=== PATIENT | female | born 1970 | race Caucasian/White ===

== ENCOUNTER 2017-10-10 21:08 | Emergency (ER) | payer OTHER ==
[2017-10-10 21:29] VITALS: RESP 18; TEMP 97.8; O2SAT 100
--- NOTE | 2017-10-10 22:13 | ED PDOC ---
HPI: Hypertension/Hypotension Time Seen by Provider: 10/10/17 21:48 Chief Complaint (Nursing): Chest Pain Chief Complaint (Provider): hypertension, chest pain History Per: Patient History/Exam Limitations: no limitations Onset/Duration Of Symptoms: Days (2 weeks), Waxing/Waning Current Symptoms Are (Timing): Still Present Associated Symptoms: Chest Pain Additional Complaint(s): 47 y/o female presents for evaluation of elevated blood pressure x 2 weeks. Patient states she has been feeling "off" x 2 weeks, has been checking blood pressures at home and getting numbers in 140's/90's. Patient also reports intermittent chest pressure, which has become more persistent in the last 2 days. Patient states tonight she was at a work event, had two alcoholic beverages, then began to feel tingling in right arm, which prompted ED visit. Patient admits to drinking alcohol more frequently than she usually does since summer started. Patient unsure if her symptoms related to anxiety due to her elevated BP and family history of elevated BP. Denies fever, headache, dizziness , extremity weakness, shortness of breath, palpitations, abdominal pain, leg pain/swelling, OCP use, tobacco use. Past Medical History Reviewed: Historical Data, Nursing Documentation, Vital Signs Vital Signs: Last Vital Signs Temp 97.8 F 10/10/17 21:26 Pulse 64 10/10/17 21:26 Resp 18 10/10/17 21:26 BP 145/105 H 10/10/17 22:04 Pulse Ox 100 10/10/17 21:26 - Medical History PMH: No Chronic Diseases - Surgical History Surgical History: No Surg Hx - Family History Family History: States: CAD, Hypertension - Living Arrangements Living Arrangements: Alone - Social History Current smoker - smoking cessation education provided: No Alcohol: Other (3-4 times per week) Drugs: Denies - Allergies Allergies/Adverse Reactions: Allergies Allergy/AdvReac Type Severity Reaction Status Date / Time No Known Allergies Allergy Verified 10/10/17 21:26 Review of Systems ROS Statement: Except As Marked, All Systems Reviewed And Found Negative Cardiovascular: Positive for: Chest Pain Physical Exam - Reviewed Nursing Documentation Reviewed: Yes Vital Signs Reviewed: Yes - Physical Exam Appears: Positive for: Well, Non-toxic, No Acute Distress Head Exam: Positive for: ATRAUMATIC, NORMAL INSPECTION, NORMOCEPHALIC Skin: Positive for: Normal Color Eye Exam: Positive for: Normal appearance ENT: Positive for: Normal ENT Inspection Cardiovascular/Chest: Positive for: Regular Rate, Rhythm Respiratory: Positive for: Normal Breath Sounds Gastrointestinal/Abdominal: Positive for: Normal Exam Back: Positive for: Normal Inspection Extremity: Positive for: Normal ROM Neurologic/Psych: Positive for: Alert, Oriented (x3). Negative for: Motor/ Sensory Deficits - Laboratory Results Result Diagrams: 10/10/17 22:21 10/10/17 22:21 - ECG ECG: Positive for: Viewed By Me (reviewed by ED attending) ECG Rhythm: Positive for: Sinus Rhythm O2 Sat by Pulse Oximetry: 100 Pulse Ox Interpretation: Normal - Radiology X-Ray: Viewed By Me X-Ray Interpretation: No Acute Disease - Progress ED Course And Treament: labs, ekg, chest xray 2hour repeat trop neg Patient educated on findings, discharged with instructions to follow up PMD 2-3 days Offered rx for Hctz but patient states she does not wish to go on BP medication at this time; states she will avoid alcohol and follow up with her primary doctor Return precautions given Disposition - Clinical Impression Clinical Impression: Hypertension, Chest pain - Patient ED Disposition Is Patient to be Admitted: No Counseled Patient/Family Regarding: Studies Performed, Diagnosis, Need For Followup - Disposition Disposition: Routine/Home Disposition Time: 01:33 Condition: STABLE Instructions: High Blood Pressure in Adults, Chest Pain, Controlling Your Blood Pressure Through Lifestyle Forms: [employer] (Green[place]ic)
[2017-10-10 22:38] LABS: BASO % 0.7 % (0.0-2.0); EOS # 0.1 K/uL (0.0-0.7); EOS % 1.1 % (0.0-4.0); HEMOGLOBIN 14.1 g/dL (12.0-16.0); LYMPH # 1.6 K/uL (1.0-4.3); LYMPH % 32.3 % (20.0-40.0); MEAN CELL VOLUME 97.8 fl (81.0-99.0); MEAN CORPUSCULAR HEMOGLOBIN 34.3 pg (27.0-31.0); MEAN CORPUSCULAR HGB CONC 35.1 g/dL (33.0-37.0); MEAN PLATELET VOLUME 8.6 fl (7.2-11.7); MONO # 0.4 K/uL (0.0-0.8); MONO % 8.6 % (0.0-10.0); NEUT # 2.8 K/uL (1.8-7.0); NEUT % 57.3 % (50.0-75.0); NRBC % 0.1 % (0.0-0.0); RBC 4.11 Mil/uL (3.80-5.20); RED CELL DISTRIBUTION WIDTH 12.8 % (11.5-14.5); WHITE BLOOD COUNT 4.8 K/uL (4.8-10.8)
[2017-10-10 22:55] LABS: ALB/GLOB RATIO 1.6 (1.0-2.1); ALBUMIN 4.5 g/dL (3.5-5.0); ALT/SGPT 31 U/L (9-52); AST/SGOT 46 U/L (14-36); BLOOD UREA NITROGEN 16 mg/dl (7-17); CALCIUM 9.4 mg/dL (8.4-10.2); GFR AFRICAN-AMERICAN > 60; GFR NON-AFRICAN AMERICAN > 60
[2017-10-11 02:33] VITALS: BP 143/100; PULSE 68
== END 2017-10-11 01:48 | disposition home or self-care (01) ==
LOC: MERGE 21:08 → H.ER 21:08
DX: I10 Essential (primary) hypertension (principal); Z82.49 Family history of ischemic heart disease and other diseases of the circulatory system; R07.9 Chest pain, unspecified